=== PATIENT | male | born 1975 | race Caucasian/White ===

== ENCOUNTER 2019-01-01 10:31 | Emergency (ER) | payer BC, OTHER ==
--- OUTSIDE RECORDS SUMMARY | 2019-01-01 10:52 | XMS REPORT | Summary of Care ---
:1975 Author Organization [facility] Address [address] [place] [address] Care Team Providers Name Role Phone Ramya Suarez MD Primary Care Provider Reason for Referral MRI/CAT/PET Scan (Routine) Status Reason Specialty Diagnoses / Referred By Referred To Procedures Contact Contact Pending Review Diagnoses Generalized abdominal pain Hernandes, Procedures CT ABDOMEN PELVIS WITH IV CONTRAST Elisabeth Gaspar NP [address] [place] [id number] Reason for Visit Reason Comments Follow-up 1-month follow-up on hiatal hernia with GERD. Encounter Details Date Type Department Care Team Description 12/29/2018 Office Visit [place] [facility], Nausea vomiting and diarrhea ( Primary Dx); Gastroenterology/Hepa Elisabeth Gaspar NP Generalized abdominal pain; tology [address] Upper abdominal pain [address] [place] [address] [place] [address] [phone] Allergies Active Allergy Reactions Severity Noted Date Comments No Known Drug Allergy Other 09/14/2008 documented as of this encounter (statuses as of 12/29/2018) Medications Medication Sig Dispensed Refills Start Date End Date Status Rizatriptan Benzoate 10 Take by mouth. 0 Active MG Oral Tab pantoprazole (PROTONIX) Take 1 Tab by 30 Tab 5 11/27/2018 Active 40 MG Oral Tab mouth DAILY. ECIndications: Hiatal hernia with GERD colestipol (COLESTID) 1 Take 2 Tabs by 120 Tab 0 12/29/2018 Active GM Oral Tab mouth TWICE DAILY. amitriptyline (ELAVIL, Take 1 Tab by 30 Tab 0 12/29/2018 Active ENDEP) 10 MG Oral Tab mouth EVERY BEDTIME. 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 without aura 11/25/2018 BPH without urinary obstruction 11/25/2018 Overview: Benign prostatic hypertrophy with outflow obstruction Gastro-esophageal reflux disease with esophagitis 11/25/2018 Diaphragmatic hernia 11/25/2018 Diverticular disease 11/25/2018 Immunoproliferative neoplasm 11/25/2018 History of colonic polyps 11/25/2018 Irritable bowel syndrome 11/25/2018 Adjustment disorder with depressed mood 11/25/2018 Furuncle of buttock 11/25/2018 documented as of this encounter (statuses as of 12/29/2018) Social History Tobacco Use Types Packs/Day Years Used Date Former Smoker Quit: 01/26/2017 Smokeless Tobacco: Never Used Alcohol Use Drinks/Week oz/Week Comments Not Currently occ Sex Assigned at Date Recorded Not on file Job Start Date Occupation Industry Not on file Not on file Not on file Travel History Travel Start Travel End No recent travel history available. documented as of this encounter Last Filed Vital Signs Vital Sign Reading Time Taken Comments Blood Pressure 114/78 12/29/2018 9:24 AM EDT Pulse 72 12/29/2018 9:24 AM EDT Temperature 36.3 12/29/2018 9:24 AM EDT C (97.4 F) Respiratory Rate - - Oxygen Saturation - - Inhaled Oxygen Concentration - - Weight 109.3 kg (241 lb) 12/29/2018 9:24 AM EDT Height 180.3 cm (5' 11") 12/29/2018 9:24 AM EDT Body Mass Index 33.61 12/29/2018 9:24 AM EDT documented in this encounter Patient Instructions Patient InstructionsElisabeth Hernandes NP - 12/29/2018 9:20 AM EDT1. Will send request to [facility] to see if they have done a CT abd/pelvic in the past year 2. Lab today 3. Will start Colestid twice daily and Elavil at bedtime 4. Follow up in 1 month 5. Follow up with your primary care doctor to discuss the shortness of breath and phlegm Thank you for choosing the [facility] for your needs today! -Elisabeth Hernandes N.P. , Please call if you need to cancel or change your appt. time. Thank you for choosing [facility] for your health care needs, and for consulting with [facility] today. You may receive a survey following this visit, or after an upcoming hospital stay. As easy as it is to feel overloaded with surveys, we are required to send them out randomly and they do provide important feedback so that we may serve your needs in the best way. Please do take the few minutes required to complete the survey if you receive one. We get them too, after seeing the doctor, and they only take a few minutes to complete. documented in this encounter Progress Notes Elisabeth Hernandes NP - 12/29/2018 9:20 AM EDT PATIENT: Nahum Ibrahim : 1975 DATE OF SERVICE: 12/29/2018 REFERRING PRACTITIONER: Elisabeth Hernandes PRIMARY CARE PROVIDER: Ramya Suarez CHIEF COMPLAINT: Chief Complaint Patient presents with Follow-up 1-month follow-up on hiatal hernia with GERD. Subjective HISTORY OF PRESENT ILLNESS: Nahum Ibrahim is a 43-y.o. male who presents for follow-up of n/v/d. He appears aggitated, avoidingeye contact and not answering questions directly. He reports he recently has been sick with an viral URI and has had resolution of his diarrhea and morning vomiting, feels this is related to eating less and having no appetite. He is having some SOB onand off, mostly with exertion and increased phlegm production. He reports intermittent RUQ pain ongoing for several years, continues AM nausea despite acid reduction with Pantoprazole. Admits that he is eating before bedtime. 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 He reports he has not discussed this with his PCP and [facility] Denies dysphagia, melena, hamatemesis, hematochezia, constipation, jaundice, fevers, chills, night sweats, easy bruising, chest pain, dysuria, hematuria, pyuria, joint pains, acholic stools, dark urineor systemic pruritis. Current Outpatient Medications Medication Sig amitriptyline (ELAVIL, ENDEP) 10 MG Oral Tab Take 1 Tab by mouth EVERY BEDTIME. colestipol (COLESTID) 1 GM Oral Tab Take 2 Tabs by mouth TWICE DAILY. pantoprazole (PROTONIX) 40 MG Oral Tab EC Take 1 Tab by mouth DAILY. Rizatriptan Benzoate 10 MG Oral Tab Take by mouth. No current facility-administered medications for this visit. Allergies Allergen Reactions No Known Drug Allergy Other REVIEW OF SYSTEMS: All remaining review of systems was negative except for as noted in the history of present illness/subjective. Objective PHYSICAL EXAMINATION: VITALS: BP 114/78 | Pulse 72 | Temp 97.4 F (36.3 C) | Ht 5' 11" ( 1.803 m) | Wt 241 lb (109.3 kg) | BMI 33.61 kg/m Body mass index is 33.61 kg/m. GENERAL: alert, oriented, no acute distress. HEENT: No scleral icterus, MMM Psych: Affect normal Neck: no lymphadenopathy LUNGS: clear to auscultation bilaterally. HEART: regular rhythm, no murmurs, no gallops, no rubs. ABDOMEN: general exam: soft, non-tender, non-distended, without masses or organomegaly, normal active bowel sounds, Wolf's sign negative. Extrmities: no edema Skin: clear Neuro: gait normal, a&o x 3 RECTAL: exam deferred. IMPRESSION: ICD-9-CM ICD-10-CM 1. Nausea vomiting and diarrhea 787.91 R11.2 CBC WITH DIFFERENTIAL 787.01 R19.7 COMPREHENSIVE METABOLIC PANEL CELIAC DISEASE PANEL THYROID STIMULATING HORMONE 2. Generalized abdominal pain 789.07 R10.84 CBC WITH DIFFERENTIAL COMPREHENSIVE METABOLIC PANEL CELIAC DISEASE PANEL THYROID STIMULATING HORMONE CT ABDOMEN PELVIS WITH IV CONTRAST 3. Upper abdominal pain 789.09 R10.[address] perform [address] if he has not had one done already. Plan PLAN: Patient Instructions 1. Will send request to [facility] to see if they have done a CT abd/pelvic in the past year 2. Lab today 3. Will start Colestid twice daily and Elavil at bedtime 4. Follow up in 1 month 5. Follow up with your primary care doctor to discuss the shortness of breath and phlegm Thank you for choosing the [facility] for your needs today! -Elisabeth Hernandes N.P. , Please call if you need to cancel or change your appt. time. Thank you for choosing [facility] for your health care needs, and for consulting with [facility] today. You may receive a survey following this visit, or after an upcoming hospital stay. As easy as it is to feel overloaded with surveys, we are required to send them out randomly and they do provide important feedback so that we may serve your needs in the best way. Please do take the few minutes required to complete the survey if you receive one. We get them too, after seeing the doctor, and they only take a few minutes to complete. Author: Elisabeth Hernandes NP 12/29/2018 10:08 documented in this encounter Plan of Treatment Date Type Specialty Care Team Description 01/28/2019 Office Visit Gastroenterology Elisabeth Hernandes NP [address] [facility] [place] [address] [phone] Name Type Priority Associated Diagnoses Order Schedule CBC WITH DIFFERENTIAL Lab Routine Generalized Abdominal Expected: 2018 Pain (Approximate), Nausea Vomiting And Expires: 01/12/2019 Diarrhea COMPREHENSIVE METABOLIC Lab Routine Generalized Abdominal Expected: 2018 PANEL Pain (Approximate), Nausea Vomiting And Expires: 12/30/2019 Diarrhea CELIAC DISEASE PANEL Lab Routine Generalized abdominal Expected: 12/29/2018 pain (Approximate), Nausea vomiting and Expires: 01/12/2019 diarrhea THYROID STIMULATING Lab Routine Generalized abdominal Expected: 12/29/2018 HORMONE pain (Approximate), Nausea vomiting and Expires: 01/12/[address] ABDOMEN PELVIS WITH IV Imaging Routine Generalized abdominal Expected: CONTRAST pain 12/29/2018, Expires: 12/29/2019 Health Maintenance Due Date Last Done Comments DEPRESSION SCREENING 1988 HIV SCREENING 1991 DIABETES SCREENING 1994 LIPID DISORDER SCREENING 1994 INFLUENZA VACCINE (#1) 2018 HPV IMMUNIZATION SERIES Aged Out No longer eligible based on patient's age to complete this topic MENINGOCOCCAL VACCINE IMM Aged Out No longer eligible based on patient's age to complete this topic PNEUMOCOCCAL 0-64 YRS Aged Out No longer eligible based on patient's age to complete this topic documented as of this encounter Results Not on filedocumented in this encounter Visit Diagnoses Diagnosis Nausea vomiting and diarrhea - Primary Nausea with vomiting Generalized abdominal pain Abdominal pain, generalized Upper abdominal pain Abdominal pain, other specified site documented in this encounter Insurance Payer Benefit Plan / Subscriber ID Effective Dates Phone Address Type Group [employer] xxxxxxxxxxxx 2017-Present [employer] Guarantor Name Account Type Relation to Date of Phone Billing Patient Address Nahum Ibrahim Colin Personal/Family 1975 [address] (Home) [address] [phone] [place], [place] (Work) [id number] documented as of this encounter
--- OUTSIDE RECORDS SUMMARY | 2019-01-01 10:52 | XMS REPORT | Summary of Care ---
:1975 Author Organization [facility] Address [address] [facility] [place] [address] Care Team Providers Name Role Phone Ramya Suarez MD Primary Care Provider Reason for Visit Reason Comments Diverticulitis New pt. referred by his PCP for recurrent diverticulitis. Encounter Details Date Type Department Care Team Description 11/27/2018 Office Visit Eli Hernandes, Hiatal hernia with GERD ( Primary Dx); Gastroenterology/Hep Elisabeth Gaspar NP History of diverticulitis of colon atology 1 [facility] [address] [facility] [place] [address] [place] [address] [phone] Allergies Active Allergy Reactions Severity Noted Date Comments No Known Drug Allergy Other 09/14/2008 documented as of this encounter (statuses as of 11/27/2018) Medications Medication Sig Dispensed Refills Start Date End Date Status Rizatriptan Take by mouth. 0 Active Benzoate 10 MG Oral Tab pantoprazole Take 1 Tab by 30 Tab 5 11/27/2018 Active (PROTONIX) 40 MG mouth DAILY. Oral Tab ECIndications: Hiatal hernia with GERD LamoTRIgine 100 MG Take by mouth. 0 Discontinued Oral TABLET SR 24 9 HR ketorolac (TORADOL) by Intravenous 0 Discontinued 30 MG/ML Injection Push route ONE 9 Solution TIME. Given IM left deltoid lithium (LITHOBID) Take 450 mg by 0 Discontinued 300 MG Oral Tab CR mouth TWICE 9 DAILY. finasteride Take 5 mg by 0 Discontinued (PROSCAR) 5 MG Oral mouth DAILY. 9 Tab Cholestyramine Take by mouth. 0 Discontinued Light 4 g Oral 9 Powder documented as of this encounter (statuses as of 11/27/2018) Active Problems Problem Noted Date Former smoker [...] as of this encounter (statuses as of 11/27/2018) Social History Tobacco Use Types Packs/Day Years [...] Sign Reading Time Taken Comments Blood Pressure 96/62 11/27/2018 11:09 AM EDT Pulse 78 11/27/2018 11:09 AM EDT Temperature 36.3 11/27/2018 11:09 AM EDT C (97.4 F) Respiratory Rate - - Oxygen Saturation - - Inhaled Oxygen Concentration - - Weight 111.6 kg (246 lb) 11/27/2018 11:09 AM EDT Height 180.3 cm (5' 11") 11/27/2018 11:09 AM EDT Body Mass Index 34.31 11/27/2018 11:09 AM EDT documented in this encounter Patient Instructions Patient InstructionsElisabeth Hernandes NP - 11/27/2018 11:00 AM EDT 1. Start Pantoprazole once daily on an empty stomach, preferably in the evening 2. Avoid acidic spicy and high fat foods as discussed , work on reducing your coffee intake 3. Follow up in 1 month Hiatal Hernia WHAT YOU NEED TO KNOW: A hiatal hernia is a condition that causes part of your stomach to bulge through the hiatus (small opening) in your diaphragm. The part of the stomach may move up and down, or it may get trapped above the diaphragm. DISCHARGE INSTRUCTIONS: Return to the emergency department if: You have severe abdominal pain. You try to vomit but nothing comes out (retching). You have severe chest pain and sudden trouble breathing. Your bowel movements are black or bloody. Your vomit looks like coffee grounds or has blood in it. Contact your healthcare provider if: Your symptoms are getting worse. You have nausea, and you are vomiting. You are losing weight without trying. You have questions or concerns about your condition or care. Medicines: Medicines may be given to relieve heartburn symptoms. These medicines help to decrease or block stomach acid. You may also be given medicines that help to tighten the esophageal sphincter. Take your medicine as directed. Call your healthcare provider if you think your medicine is not helping or if you have side effects. Tell him if you are allergic to any medicine. Keep a list of the medicines, vitamins, and herbs you take. Include the amounts, and when and why you take them. Bring the list or the pill bottles to follow-up visits. Carry your medicine list with you in case of an emergency. Follow up with your healthcare provider as directed: Write down your questions so you remember to ask them during your visits. Self care: Avoid foods that make your symptoms worse. These may include spicy foods, fruit juices, alcohol, caffeine, chocolate, and mint. Eat several small meals during the day. Small meals give your stomach less food to digest. Avoid lying down and bending forward after you eat. Do not eat meals 2 to 3 hours before bedtime. This decreases your risk for reflux. Maintain a healthy weight. If you are overweight, weight loss may help relieve your symptoms. Sleep with your head elevated at least 6 inches. Do not smoke. Smoking can increase your symptoms of heartburn. 2016 [employer]. Information is for End User's use only and may not be sold, redistributed or otherwise used for commercial purposes. All illustrations and images included in CareNotes are the copyrighted property of [employer] or [employer]. The above information is an assistant director of financial aid only. It is not intended as medical advice for individual conditions or treatments. Talk to your doctor, nurse or pharmacist before following any medical regimen to see if it is safe and effective for you. documented in this encounter Progress Notes Elisabeth Hernandes NP - 11/27/2018 11:00 AM EDT PATIENT: Nahum Ibrahim : 1975 DATE OF SERVICE: 11/27/2018 REFERRING PRACTITIONER: Ramya Suarez PRIMARY CARE PROVIDER: Ramya Suarez CHIEF COMPLAINT: Chief Complaint Patient presents with Diverticulitis New pt. referred by his PCP for recurrent diverticulitis. Subjective HISTORY OF PRESENT ILLNESS: Nahum Ibrahim is a 43-y.o. male who presents for a consultation for evaluation of epigastric pain, nausea, vomiting and diarrhea. Onset was several months ago. Symptoms have been unchanged since. Symptoms include: midepigastric pain, nausea and vomiting. He denies dysphagia. He has not lost weight. He denies melena, hematochezia, hematemesis, and coffee ground emesis. Aggravated by: none Alleviated by: none Associated signs and symptoms: none Previous visits for this: yes, last seen several months ago by a [facility] consultant for this condition in [place]. He had 2 colonoscopies and an EGD. Records are not available for my review at time of visit,however PCP notes indicate the EGD was positive for a hiatal hernia. Colonoscopy was positive for a TI mass, biopsies were "normal" and a repeat colonoscopy a few weeks later was unremarkable. Medical therapy in the past has included none. The patient denies: dysphagia, dynophagia, weight loss, bleeding, oropharynx esophageal manifestation symptoms. Typical daily diet for this patient is 40-50 ounces of coffee daily and one meal , which is typicallya lean protein and vegetables. Past Medical History: Diagnosis Date Eczema hands/feet/knees History of appendectomy 2013 History reviewed. No pertinent surgical history. Family History Problem Relation Age of Onset Depression/Depressed Mother Dementia Mother Thyroid Mother hypothyroidism Hypertension Father COPD Father Diabetes Sister Stroke Sister Depression/Depressed Sister Cancer Unknown ? grandparents Current Outpatient Medications Medication Sig pantoprazole (PROTONIX) 40 MG Oral Tab EC Take 1 Tab by mouth DAILY. Rizatriptan Benzoate 10 MG Oral Tab Take by mouth. No current facility-administered medications for this visit. Allergies Allergen Reactions No Known Drug Allergy Other Social History Socioeconomic History Marital status: Unknown Spouse name: Not on file Number of children: Not on file Years of education: Not on file Highest education level: Not on file Occupational History Not on file Social Needs Financial resource strain: Not on file Food insecurity: Worry: Not on file Inability: Not on file Transportation needs: Medical: Not on file Non-medical: Not on file Tobacco Use Smoking status: Former Smoker Last attempt to quit: 01/26/2017 Years since quittin.8 Smokeless tobacco: Never Used Substance and Sexual Activity Alcohol use: Not Currently Comment: occ Drug use: No Sexual activity: Yes Partners: Female Lifestyle Physical activity: Days per week: Not on file Minutes per session: Not on file Stress: Not on file Relationships Social connections: Talks on phone: Not on file Gets together: Not on file Attends confucianism service: Not on file Active member of club or organization: Not on file Attends meetings of clubs or organizations: Not on file Relationship status: Not on file Intimate partner violence: Fear of current or ex partner: Not on file Emotionally abused: Not on file Physically abused: Not on file Forced sexual activity: Not on file Other Topics Concern Back Care Not Asked Bike Helmet Not Asked Blood Transfusions No Caffeine Concern Not Asked Exercise Yes Comment: gym---treadmill 1x/week Hobby Hazards Not Asked International Travel Not Asked Service Not Asked Occupational Exposure Not Asked Seat Belt Not Asked Self-Exams Not Asked Sleep Concern Not Asked Special Diet Not Asked Stress Concern Not Asked Weight Concern Not Asked Social History Narrative No children. 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 Objective PHYSICAL EXAMINATION: VITALS: BP 96/62 | Pulse 78 | Temp 97.4 F (36.3 C) | Ht 5' 11" ( 1.803 m) | Wt 246 lb (111.6 kg) | BMI 34.31 kg/m Body mass index is 34.31 kg/m. GENERAL: alert, oriented, no acute distress. HEENT: No scleral icterus, MMM Psych: Affect normal Neck: no lymphadenopathy LUNGS: clear to auscultation bilaterally. HEART: regular rhythm, no murmurs, no gallops, no rubs. ABDOMEN: general exam: soft,epigastrium-tender, non-distended, without masses or organomegaly, normal active bowel sounds, Wolf's sign negative. Extrmities: no edema Skin: clear Neuro: gait normal, a&o x 3 RECTAL: exam deferred. IMPRESSION: ICD-9-CM ICD-10-CM 1. Hiatal hernia with GERD 530.81 K21.9 pantoprazole (PROTONIX) 40 MG Oral Tab EC 553.3 K44.9 2. History of diverticulitis of colon V12.79 Z87.19 Gastroesophageal reflux disease, needs improvement, needs to follow diet more regularly. Will need to obtain the EGD and colonoscopy records. I presume his diarrhea will resolve with reducing his stomach acid and decreasing his coffee intake.Could also try cholestyramine . Plan PLAN: Nonpharmacologic treatments were discussed including: eating smaller meals, elevation of the head of bed at night, avoidance of caffeine, chocolate, nicotine and peppermint, avoiding tight fitting clothing. Patient Instructions 1. Start Pantoprazole once daily on an empty stomach, preferably in the evening 2. Avoid acidic spicy and high fat foods as discussed , work on reducing your coffee intake 3. Follow up in 1 month Hiatal Hernia WHAT YOU NEED TO KNOW: A hiatal hernia is a condition that causes part of your stomach to bulge through the hiatus (small opening) in your diaphragm. The part of the stomach may move up and down, or it may get trapped above the diaphragm. DISCHARGE INSTRUCTIONS: Return to the emergency department if: You have severe abdominal pain. You try to vomit but nothing comes out (retching). You have severe chest pain and sudden trouble breathing. Your bowel movements are black or bloody. Your vomit looks like coffee grounds or has blood in it. Contact your healthcare provider if: Your symptoms are getting worse. You have nausea, and you are vomiting. You are losing weight without trying. You have questions or concerns about your condition or care. Medicines: Medicines may be given to relieve heartburn symptoms. These medicines help to decrease or block stomach acid. You may also be given medicines that help to tighten the esophageal sphincter. Take your medicine as directed. Call your healthcare provider if you think your medicine is not helping or if you have side effects. Tell him if you are allergic to any medicine. Keep a list of the medicines, vitamins, and herbs you take. Include the amounts, and when and why you take them. Bring the list or the pill bottles to follow-up visits. Carry your medicine list with you in case of an emergency. Follow up with your healthcare provider as directed: Write down your questions so you remember to ask them during your visits. Self care: Avoid foods that make your symptoms worse. These may include spicy foods, fruit juices, alcohol, caffeine, chocolate, and mint. Eat several small meals during the day. Small meals give your stomach less food to digest. Avoid lying down and bending forward after you eat. Do not eat meals 2 to 3 hours before bedtime. This decreases your risk for reflux. Maintain a healthy weight. If you are overweight, weight loss may help relieve your symptoms. Sleep with your head elevated at least 6 inches. Do not smoke. Smoking can increase your symptoms of heartburn. 2016 [employer]. Information is for End User's use only and may not be sold, redistributed or otherwise used for commercial purposes. All illustrations and images included in CareNotes are the copyrighted property of [employer]. or [employer]. The above information is an assistant director of financial aid only. It is not intended as medical advice for individual conditions or treatments. Talk to your doctor, nurse or pharmacist before following any medical regimen to see if it is safe and effective for you. Author: Elisabeth Hernandes NP 11/27/2018 11:39 documented in this encounter Plan of Treatment Date Type Specialty Care Team Description 12/29/2018 Office Visit Gastroenterology Elisabeth Hernandes NP [address] [place] [address] [phone] Health Maintenance Due Date Last Done Comments [...] filedocumented in this encounter Visit Diagnoses Diagnosis Hiatal hernia with GERD - Primary History of diverticulitis of colon Personal history of other diseases of digestive system documented in this encounter Insurance Payer Benefit Plan / Subscriber ID Effective Dates Phone Address Type Group SHABBIR HERNANDEZ [employer] xxxxxxxxxxxx 2017-Present [employer] Guarantor Name Account Type Relation to Date of Phone Billing Patient Address Nahum Ibrahim Colin Personal/Family 1975 [address] (Home) [address] [facility] [phone] [place], [place] (Work) [id number] documented as of this encounter
[2019-01-01 11:06] VITALS: BP 119/81
--- NOTE | 2019-01-01 11:27 | UC ---
UC General HPI - HPI Summary HPI Summary: pt is c/o a 1-2 year hx of daily n/v/d. most often in am. pt states "I shit liquid bile everyday". he has seen 2 different GI people and had a negative endoscopy and colonoscopy about 1 years ago. he is being tx with Protonix from GI and admits to ongoing GERD. he is to take it daily but doesn't always do that. he states GI felt it was depression. he reports that his whole gut feels awful all the time. he admits to GI upset with fatty foods and has stopped consuming sausage all together. he has noted some blood in his vomit, streaking but not clots recently. he admits to dark urine and light stool. + bloating. pt smokes marijuana and has stopped that it the past without improvement in his s/s's. "the vomiting got worse" without it. - History of Current Complaint Chief Complaint: UCAbdominalPain Stated Complaint: NAUSEA VOMITING Time Seen by Provider: 01/01/19 11:15 Hx Obtained From: Patient Onset/Duration: Gradual Onset Timing: Constant Pain Intensity: 6 Associated Signs & Symptoms: Positive: Abdominal Pain. Negative: Chest Pain, Dizziness, Syncope, SOB - Allergy/Home Medications Allergies/Adverse Reactions: Allergies Allergy/AdvReac Type Severity Reaction Status Date / Time No Known Allergies Allergy Verified 01/01/19 12:49 Home Medications: Home Medications Acetaminophen [Acetaminophen Extra Strength] 500 mg PO DAILY 01/01/19 [History Confirmed 01/01/19] Amitriptyline TAB* [Elavil TAB*] 1 tab PO BEDTIME 01/01/19 [History Confirmed ] Colestipol (NF) 2 tab PO BID 01/01/19 [History Confirmed 01/01/19] Pantoprazole TAB * [Protonix TAB*] 1 tab PO DAILY 01/01/19 [History Confirmed ] PMH/Surg Hx/FS Hx/Imm Hx - Additional Past Medical History Additional PMH: sleep disturbance. GI/ History: Gastroesophageal Reflux Neurological History: Migraine Psychological History: Depression - Surgical History Surgical History: Yes Surgery Procedure, Year, and Place: SEPTOPLASTY - 2011 [facility]. PIN INSERTION RIGHT WRIST - 2012 - Family History Known Family History: Positive: Non-Contributory - Social History Lives: With Family Alcohol Use: None Substance Use Type: Marijuana Substance Use Comment - Amount & Last Used: daily usage-heavy Smoking Status (MU): Former Smoker Type: Cigarettes Amount Used/How Often: 1/2-1 ppd Length of Time of Smoking/Using Tobacco: since age 18 When Did the Patient Quit Smoking/Using Tobacco: 2016 Review of Systems All Other Systems Reviewed And Are Negative: No Constitutional: Negative: Fever, Chills Respiratory: Positive: Cough. Negative: Shortness Of Breath Cardiovascular: Negative: Palpitations, Chest Pain Gastrointestinal: Positive: Abdominal Pain, Vomiting, Diarrhea, Nausea Genitourinary: Positive: Other - dark urine. Negative: Dysuria Physical Exam Triage Information Reviewed: Yes Appearance: Well-Appearing Vital Signs: Initial Vital Signs Temp 98.2 F 01/01/19 10:57 Pulse 75 01/01/19 10:57 Resp 14 01/01/19 10:57 BP 119/81 01/01/19 10:57 Pulse Ox 97 01/01/19 10:57 Vital Signs Reviewed: Yes Eyes: Positive: Conjunctiva Clear ENT: Positive: Normal ENT inspection Neck: Positive: Supple, Nontender, No Lymphadenopathy Respiratory: Positive: Lungs clear, Normal breath sounds, No respiratory distress Cardiovascular: Positive: RRR, No Murmur Abdomen Description: Positive: Other: - Hypoactive BS. Soft. Small umbiliocal hernia, soft non tender and reducible. Tender across upper abdomen but no guarding or rebound. No mass. No HSM. No pulsatile mass or CVA tenderness. Rectum , no hemorrhoids or mass. light brown stool that is guiac negative. Musculoskeletal: Positive: ROM Intact Neurological: Positive: Alert Psychological: Positive: Age Appropriate Behavior Skin Exam: Normal Diagnostics - Laboratory Lab Results: STOOL GUIAC NEG. U/A= 2+ BILIRUBIN, TRACE KETONES, 1+ PROTEIN Course/Dx - Course Course Of Treatment: Report given to Dr Todd at the [facility] [place]. - Differential Dx - Multi-Symptom Differential Diagnoses: Other - Unremarkable endoscopy and colonoscopy 1 year ago. No relief with sporadic PPI. No rleif and worse with N/V marijuana holiday. Worse with meals/ fatty foods, 2+ bilirubin in urine and bile/pale stools. Atypical biliary dysfunction/stones possible. stool here guiac neg. Possible micaela jaison tear. pt agrees to ER transfer. - Diagnoses Provider Diagnosis: Abdominal pain, Vomiting and diarrhea, Hematemesis Discharge ED - Sign-Out/Discharge Documenting (check all that apply): Patient Departure All imaging exams completed and their final reports reviewed: No Studies - Discharge Plan Condition: Stable Disposition: TRANS HIGHER LVL OF CARE FAC Referrals: Ramya Suarez MD [Primary Care Provider] - Additional Instructions: LEAVE HERE AND GO DIRECTLY TO [facility] ER DISCUSSED - Billing Disposition and Condition Condition: STABLE Disposition: Trans Higher Lvl of Care Fac - Attestation Statements Provider Attestation: I was available for consult. This patient was seen by the LUIS ANGEL. The patient was not presented to, seen by, or examined by me. -Farrukh
[2019-01-01] MEDS ORDERED: Ondansetron ODT TAB* 4 MG PO ONE (11:34)
== END 2019-01-01 12:06 | disposition short-term general hospital (02) ==
LOC: UCCORT 10:31
DX: R10.9 Unspecified abdominal pain (principal); R11.10 Vomiting, unspecified; R19.7 Diarrhea, unspecified; K92.0 Hematemesis; F17.210 Nicotine dependence, cigarettes, uncomplicated; K21.9 Gastro-esophageal reflux disease without esophagitis; Z91.19 Patient's noncompliance with other medical treatment and regimen
CPT/HCPCS: 81003; 82272; 99202; A9270-GY; G0463

== ENCOUNTER 2019-01-01 12:48 | Emergency (ER) | payer BC ==
--- NOTE | 2019-01-01 15:12 | ED ---
GI/ HPI - HPI Summary HPI Summary: This patient is a 43 year old M presenting to ED with a chief complaint of hematemesis since last night. The blood is described as bright red. He reports burning epigastric pain that is 6/10 severity. The patient reports associated nausea. He also says he vomited every morning for the last few months, but it had a bile-like appearance. He has received 2 colonoscopies, an endoscopy, and an appendectomy without a known diagnosis or treatment plan. He saw Dr. Wagner GI, three days ago. The patient uses marijuana. Medications reviewed. Allergies noted. - History of Current Complaint Chief Complaint: EDGIBleed Time Seen by Provider: 01/01/19 14:42 Stated Complaint: ABDOMINAL PAIN/VOMITING BLOOD PER PT Hx Obtained From: Patient Onset/Duration: Started Hours Ago, Still Present Timing: Intermittent Severity: Moderate Current Severity: Moderate Pain Intensity: 6 Location of Pain: Epigastric Pain Characteristics: Burning Associated Signs and Symptoms: Positive: Hematemesis, Nausea, Vomiting, Blood w/ Stool Aggravating Factor(s): Nothing Alleviating Factor(s): Nothing - Symptom Characteristics Vomiting Number of Times per Day: 1 Vomiting Characteristics: Bloody - Allergy/Home Medications Allergies/Adverse Reactions: Allergies Allergy/AdvReac Type Severity Reaction Status Date / Time No Known Allergies Allergy Verified 01/01/19 14:52 Home Medications: Home Medications Pantoprazole TAB * [Protonix TAB*] 40 mg PO DAILY 01/01/19 [History Confirmed ] PMH/Surg Hx/FS Hx/Imm Hx Endocrine/Hematology History: Denies: Hx Diabetes, Hx Sickle Cell Disease Cardiovascular History: Denies: Hx Hypercholesterolemia, Hx Hypertension, Other Cardiovascular Problems/Disorders Respiratory History: Reports: Hx Sleep Apnea - PT REPORTS "MIGHT HAVE" GI History: Denies: Other GI Disorders History: Denies: Other Problems/Disorders Musculoskeletal History: Denies: Other Musculoskeletal History Sensory History: Denies: Hx Contacts or Glasses, Hx Hearing Aid Opthamlomology History: Denies: Hx Contacts or Glasses Neurological History: Reports: Hx Migraine - PATIENT TAKES MEDICATION NEEDED Psychiatric History: Reports: Hx Anxiety - PATIENT TOOK MEDICATION IN PAST, NOT CURRENTLY, Hx Depression - PATIENT TOOK MEDICATION IN PAST, NOT CURRENTLY - Surgical History Surgical History: Yes Surgery Procedure, Year, and Place: SEPT - 2011 [facility]. PIN INSERTION RIGHT WRIST - 2013 Hx Anesthesia Reactions: No Infectious Disease History: No Infectious Disease History: Denies: Traveled Outside the [place] in Last 30 Days - Family History Known Family History: Positive: Unknown - patient is unsure of fhx - Social History Alcohol Use: None Hx Substance Use: Yes Substance Use Type: Reports: Marijuana Substance Use Comment - Amount & Last Used: daily usage-heavy Hx Tobacco Use: Yes Smoking Status (MU): Former Smoker Type: Cigarettes Amount Used/How Often: 1/2-1 ppd Length of Time of Smoking/Using Tobacco: since age 18 Review of Systems Negative: Fever Positive: Abdominal Pain - epigastric, Vomiting - hematemesis, Nausea, Other - blood with stool All Other Systems Reviewed And Are Negative: Yes Physical Exam - Summary Physical Exam Summary: VITAL SIGNS: Reviewed. GENERAL: Patient is a well-developed and nourished male who is lying comfortable in the stretcher. Patient is not in any acute respiratory distress. HEAD AND FACE: Normocephalic and atraumatic. EYES: PERRLA, EOMI x 2, No injected conjunctiva. EARS: Hearing grossly intact. Ear canals and tympanic membranes are WNL. MOUTH: Oropharynx within normal limits. NECK: Supple, trachea is midline, no adenopathy, no JVD. CHEST: Symmetric, no tenderness at palpation. LUNGS: Clear to auscultation bilaterally. No wheezing or crackles. CVS: RRR, S1 and S2 present, no murmurs or gallops appreciated. ABDOMEN: Soft, non-tender. No signs of distention. Positive bowel sounds. No rebound, no guarding, and no masses palpated. No abdominal bruit or pulsations. RECTAL: Normal sphincter tone, no hemorrhoids, no melena, no black stool, and no gross blood. EXTREMITIES: FROM in all major joints, no edema, no cyanosis or clubbing. NEURO: Alert and oriented x 3. No acute neurological deficits. Speech is normal. SKIN: Dry and warm. Triage Information Reviewed: Yes Vital Signs On Initial Exam: Initial Vitals Temp Pulse Resp BP Pulse Ox 97.8 F 93 20 133/96 96 01/01/19 12:49 01/01/19 12:49 01/01/19 12:49 01/01/19 12:49 01/01/19 12:49 Vital Signs Reviewed: Yes Diagnostics - Vital Signs Vital Signs Temp Pulse Resp BP Pulse Ox 01/01/19 12:49 97.8 F 93 20 133/96 96 - Laboratory Result Diagrams: 01/01/19 15:17 01/01/19 15:17 Lab Statement: Any lab studies that have been ordered have been reviewed, and results considered in the medical decision making process. - Ultrasound Abdominal Ultrasound Ultrasound Interpretation Completed By: Radiologist Summary of Ultrasound Findings: ABD ULTRASOUND IMPRESSION: 1. NORMAL EXAMINATION OF THE GALLBLADDER. 2. FINDINGS SUGGESTIVE OF FATTY INFILTRATION OF THE LIVER. ED Physician has reviewed this ultrasound. Re-Evaluation - Re-Evaluation First Eval Re-Evaluation Time: 18:28 Comment: We discussed all results and plan for discharge. GIGU Course/Dx - Course Assessment/Plan: Patient is a 43 y/o M with chief complaint of nausea, hematemesis, and epigastric pain this morning with chronic episodes of bile- like appearing emesis over the last few months without known origin. Blood work without any significant abnormality except for hemoglobin of 13.3, hematocrit of 39. BUN and creatinine normal. CRP is 14.7. Urinalysis is negative for UTI. Occult blood is also negative. In the ED course the patient was given Protonix. Right upper quadrant ultrasound impression: normal examination with the gallbladder. Findings suggestive of fatty infiltration of the liver. At this point I discussed my physical exam and findings with Dr. Gates from GI, and he recommends for the patient to be discharged home and follow up with his office. He also recommends for the patient to be given a prescription for Protonix 40 mg twice a day. Patient is hemodynamically stable alert and oriented 3. I discussed all the findings and test results with the patient. Patient was instructed to return to the emergency room immediately if any of the symptoms return or worsen. Plan of care was discussed with the patient and understands and agrees. All questions were answered at patient satisfaction. There were no further complaints or concerns. Lung exam before discharge: CTA B/ L. Good air exchange. No wheezing or crackles heard. CVS: S1 and S2 present. No murmurs appreciated. Patient is alert and oriented x 3. Patient is hemodynamically stable. Patient will be discharged home with follow up PCP in the next 2-3 days. - Diagnoses Provider Diagnoses: Hematemesis - Physician Notifications Discussed Care Of Patient With: Vitaly Gates - Senior Clinical Data Coordinator Time Discussed With Above Provider: 16:50 Instructed by Provider To: Other - I talked to Dr. Gates from gastroenterology. He said take Protonix twice a day and follow up with Dr. Wagner. Discharge ED - Sign-Out/Discharge Documenting (check all that apply): Patient Departure - discharge Patient Received Moderate/Deep Sedation with Procedure: No - Discharge Plan Condition: Stable Disposition: HOME Patient Education Materials: Hematemesis (ED) Referrals: Gianluca Wagner MD [Medical Doctor] - 3 Days Ramya Suarez MD [Primary Care Provider] - 3 Days Additional Instructions: Take your Protonix 2 times a day. Follow up with Dr. Wagner in 2-3 days. Return to the Emergency Department for any new or worsening symptoms. - Billing Disposition and Condition Condition: STABLE Disposition: Home - Attestation Statements Document Initiated by Winnieibe: Yes Documenting Scribe: Tramaine Chacko Provider For Whom Omar is Documenting (Include Credential): Jeremy Jeffries MD. Scribe Attestation: Tramaine Garrido, chelseaed for Jeremy Jeffries MD. on 01/02/19 at 1832. Scribe Documentation Reviewed: Yes Provider Attestation: The documentation as recorded by the scribeTramaine accurately reflects the service I personally performed and the decisions made by , Jeremy Jeffries MD. Status of Scribe Document: Viewed
[2019-01-01 15:28] LABS: ABS Basophils 0.1 10^3/ul (0-0.2); ABS Eosinophils 0.6 10^3/ul (0-0.6); ABS Lymphocytes 2.5 10^3/ul (1.0-4.8); ABS Monocytes 0.5 10^3/ul (0-0.8); ABS Neutrophils 4.6 10^3/ul (1.5-7.7); Eosinophil % 7.3 %; Hematocrit 39 % (42-52); Hemoglobin 13.3 g/dL (14.0-18.0); Lymphocyte % 30.3 %; Mean Corpuscular HGB Conc 34 g/dL (31-36); Mean Corpuscular Hemoglobin 30 pg (27-31); Mean Corpuscular Volume 88 fL (80-94); Mean Platelet Volume 7.8 fL (7.4-10.4); Platelet Count 302 10^3/uL (150-450); Red Blood Count 4.47 10^6 /uL (4.18-5.48); Red Cell Distribution Width 13 % (10-15); White Blood Count 8.3 10^3/uL (3.5-10.8)
[2019-01-01 15:48] LABS: Albumin 4.3 g/dL (3.2-5.2); Albumin/Globulin Ratio 1.5 (1-3); BUN/Creatinine Ratio 12.6 (8-20); C Reactive Protein 14.77 mg/L (<8.01); Calcium 9.5 mg/dL (8.6-10.3); EGFR African American 95.8 (>60); EGFR Non-African American 79.2 (>60); Globulin 2.8 g/dL (2-4); Total Bilirubin 0.7 mg/dL (0.2-1.0); Total Protein 7.1 g/dL (6.4-8.9)
[2019-01-01] MEDS ORDERED: Pantoprazole IV* 40 MG IV ONE (15:59)
[2019-01-01 16:31] LABS: Urine Appearance Cloudy; Urine Bilirubin Negative (Negative); Urine Blood Negative (Negative); Urine Color Amber; Urine Glucose Negative (Negative); Urine Ketones Trace (Negative); Urine Nitrite Negative (Negative); Urine Protein Negative (Negative); Urine Specific Gravity 1.029 (1.010-1.030); Urine Urobilinogen Negative (Negative)
[2019-01-01 18:39] VITALS: BP 145/82
== END 2019-01-01 18:39 | disposition home or self-care (01) ==
LOC: ED 12:48
DX: K92.0 Hematemesis (principal); Z87.891 Personal history of nicotine dependence; Z79.899 Other long term (current) drug therapy; R10.11 Right upper quadrant pain; R11.0 Nausea; R19.5 Other fecal abnormalities
CPT/HCPCS: 36415; 76705; 80053; 81003; 82270; 83605; 83690; 85025; 86140; 86850; 86900; 86901; 96374; 99282